=== PATIENT | female | born 1990 | race Caucasian/White ===

== ENCOUNTER 2017-02-17 23:54 | Emergency (ER) | payer BC ==
[~2017-02-17] VITALS: Ht 160 cm; Wt 72.6 kg
[2017-02-18 00:31] VITALS: BP 116/50
[2017-02-18] MEDS ORDERED: 0.9 % SODIUM CHLORIDE 10 ML DISP.SYRIN. IV PRN (00:45)
[2017-02-18] MEDS ORDERED: IV NORMAL SALINE 1,000ML 1,000 ML IV SCH (01:00)
[2017-02-18] MEDS ORDERED: ONDANSETRON PF 4 MG/2 ML VIAL. IV ONE (01:00)
[2017-02-18 01:22] LABS: BASO % 0 % (0-3); EOS % 0 % (0-3); HEMATOCRIT 38.6 % (36.0-47.0); HEMOGLOBIN 12.9 g/dL (12.0-15.5); LYMPH # 1.5 x10^3/uL (1.0-4.8); LYMPH % 17 % (24-48); MEAN CORPUSCULAR HEMOGLOBIN 29 pg (25-35); MEAN CORPUSCULAR HGB CONC 34 g/dL (31-37); MEAN CORPUSCULAR VOLUME 87 fL (79-100); MONO # 0.4 x10^3/uL (0.0-1.1); MONO % 5 % (0-9); NEUT # 7.1 x10^3uL (1.8-7.7); NEUT % 78 % (31-73); PLATELET COUNT 250 x10^3/uL (140-400); RED BLOOD COUNT 4.44 x10^6/uL (3.50-5.40); RED CELL DISTRIBUTION WIDTH 13.5 % (11.5-14.5); WHITE BLOOD COUNT 9.1 x10^3/uL (4.0-11.0)
[2017-02-18] MEDS ORDERED: ONDA8TAB12 PO (01:25)
--- NOTE | 2017-02-18 01:25 | PHYS DOC ---
Past History Past Medical History: No Pertinent History Past Surgical History: No Surgical History Smoking: Non-smoker Alcohol Use: Occasionally Drug Use: None Adult General Chief Complaint Chief Complaint: ALCOHOL INTOXICATION HPI HPI A she is a pleasant 26-year-old female who was celebrating her brother's wedding tonight and she imbibed a little too much alcohol. She began having some nausea and vomiting while on the scene despite having no abdominal pain. She was brought to the emergency department because of intractable nausea and vomiting. She admits that she's been drinking hard alcohol with beer. He does not regularly drink alcohol and only does on special occasions. She denies any abdominal pain, chest pain, shortness of breath, diarrhea, fevers, chills, URI symptoms, trauma, antibiotic use. Patient has never had any delirium tremens or withdrawal symptoms when stopping drinking alcohol. She denies that she can be at this time. Her is at the bedside. She vomited unfortunate she does not know how many times nonbilious nonbloody emesis. Review of Systems Review of Systems Constitutional: Denies fever or chills [] Eyes: Denies change in visual acuity, redness, or eye pain [] HENT: Denies nasal congestion or sore throat [] Respiratory: Denies cough or shortness of breath [] Cardiovascular: No additional information not addressed in HPI [] GI: Denies abdominal pain, only complaint is nausea and vomiting with no bloody or diarrhea stools. : Denies dysuria or hematuria [] Musculoskeletal: Denies back pain or joint pain [] Integument: Denies rash or skin lesions [] Neurologic: Denies headache, focal weakness or sensory changes [] Endocrine: Denies polyuria or polydipsia [] Current Medications Current Medications Current Medications Medications (Trade) Dose Ordered Sig/Tin Start Time Stop Time Status Last Admin Dose Admin Ondansetron HCl (Zofran) 4 mg 1X ONCE 02/18/17 01:00 02/18/17 01:01 DC 02/18/17 01:03 4 MG Sodium Chloride 1,000 ml @ 1,000 mls/hr Q1H 02/18/17 01:00 02/18/17 01:59 02/18/17 01:04 1,000 MLS/HR Sodium Chloride (Normal Saline Flush) 10 ml QSHIFT PRN 02/18/17 00:45 Allergies Allergies Allergies Coded Allergies Type Severity Reaction Last Updated Verified No Known Drug Allergies 02/18/17 No Physical Exam Physical Exam Vital signs stable. Constitutional: Well developed, well nourished, no acute distress, patient is intoxicated but very nontoxic in appearance HENT: Normocephalic, atraumatic, bilateral external ears normal, oropharynx moist, Eyes: PERRLA, EOMI, conjunctiva normal, no discharge. [] Neck: Normal range of motion, no tenderness, supple, no stridor. [] Cardiovascular:Heart rate regular rhythm, no murmur [] Lungs & Thorax: Bilateral breath sounds clear to auscultation [] Abdomen: Bowel sounds normal, soft, no tenderness, no masses, no pulsatile masses. [] Skin: Warm, dry, no erythema, no rash. [] Extremities: No tenderness, no cyanosis, no clubbing, ROM intact, no edema. [] Neurologic: Alert and oriented X 3, normal motor function, normal sensory function, no focal deficits noted. [] Psychologic: Affect normal, judgement normal, mood normal. Patient is intoxicated but has normal interactions normal memory no slurred speech. [] Current Patient Data Vital Signs Vital Signs Date Time Temp Pulse Resp B/P (MAP) Pulse Ox O2 Delivery O2 Flow Rate FiO2 02/18/17 00:22 97.4 88 20 123/73 (90) 98 Room Air Lab Results Laboratory Tests Test 02/18/17 01:03 White Blood Count 9.1 x10^3/uL (4.0-11.0) Red Blood Count 4.44 x10^6/uL (3.50-5.40) Hemoglobin 12.9 g/dL (12.0-15.5) Hematocrit 38.6 % (36.0-47.0) Mean Corpuscular Volume 87 fL (79-100) Mean Corpuscular Hemoglobin 29 pg (25-35) Mean Corpuscular Hemoglobin Concent 34 g/dL (31-37) Red Cell Distribution Width 13.5 % (11.5-14.5) Platelet Count 250 x10^3/uL (140-400) Neutrophils (%) (Auto) 78 % (31-73) H Lymphocytes (%) (Auto) 17 % (24-48) L Monocytes (%) (Auto) 5 % (0-9) Eosinophils (%) (Auto) 0 % (0-3) Basophils (%) (Auto) 0 % (0-3) Neutrophils # (Auto) 7.1 x10^3uL (1.8-7.7) Lymphocytes # (Auto) 1.5 x10^3/uL (1.0-4.8) Monocytes # (Auto) 0.4 x10^3/uL (0.0-1.1) Eosinophils # (Auto) 0.0 x10^3/uL (0.0-0.7) Basophils # (Auto) 0.0 x10^3/uL (0.0-0.2) Sodium Level 141 mmol/L (136-145) Potassium Level 3.9 mmol/L (3.5-5.1) Chloride Level 102 mmol/L (98-107) Carbon Dioxide Level 28 mmol/L (21-32) Anion Gap 11 (6-14) Blood Urea Nitrogen 10 mg/dL (7-20) Creatinine 1.2 mg/dL (0.6-1.0) H Estimated GFR (Cockcroft-Gault) 54.7 Glucose Level 96 mg/dL (70-99) Calcium Level 8.1 mg/dL (8.5-10.1) L Magnesium Level 2.3 mg/dL (1.8-2.4) Total Bilirubin 0.7 mg/dL (0.2-1.0) Direct Bilirubin 0.1 mg/dL (0.0-0.2) Aspartate Amino Transferase (AST) 24 U/L (15-37) Alanine Aminotransferase (ALT) 23 U/L (14-59) Alkaline Phosphatase 55 U/L (46-116) Total Protein 8.0 g/dL (6.4-8.2) Albumin 4.2 g/dL (3.4-5.0) Salicylates Level 0.2 mg/dL (2.8-20.0) L Salicylate Last Dose Date Unknown Salicylate Last Dose Time Unknown Acetaminophen Level < 2.0 mcg/mL (10-30) L Acetaminophen Last Dose Date Unknown Acetaminophen Last Dose Time Unknown Ethyl Alcohol Level 151 mg/dL (0-10) H EKG EKG [] Radiology/Procedures Radiology/Procedures [] Course & Med Decision Making Course & Med Decision Making Pertinent Labs and Imaging studies reviewed. (See chart for details) arrived very intoxicated with nausea and vomiting likely from over indulgence in alcohol. She is nontoxic in appearance and appropriate on exam. When she feels better and clinically sober for discharge she'll be discharged with her . Her abdomen is soft we'll ensure that she is not today. She' ll given some fluids antiemetics and reevaluation to ensure that she is feeling better. Alcohol level 151. Patient's lungs are otherwise normal patient has no other indication to be intoxicated. Patient is hemodynamics stable and resting comfortably with her in the room. I'll provide her supportive medications to go home and PCP follow-up. Impression: Alcohol intoxication, nausea and vomiting Disposition: PCP follow-up for T and care. [] Dragon Disclaimer Dragon Disclaimer This chart was dictated in whole or in part using Voice Recognition software in a busy, high-work load, and often noisy Emergency Department environment. It may contain unintended and wholly unrecognized errors or omissions. Departure Departure: Impression: Primary Impression: Alcohol intoxication Additional Impression: Nausea and vomiting Disposition: 01 HOME, SELF-CARE Condition: IMPROVED Referrals: CHELLY BRAN MD (PCP) Patient Instructions: Alcohol Intoxication, Nausea and Vomiting Additional Instructions: Please maintain your hydration by drinking regular water. Please return for any increasing abdominal pain, vomiting of blood or blood in her stool or if you have any question concerns. Scripts Ondansetron (ZOFRAN ODT) 8 Mg Tab.rapdis 4 MG PO TID for 3 Days Prov: TYRESE SERRATO MD 02/18/17 Problem Qualifiers TYRESE SERRATO MD Feb 18, 2017 01:25
[2017-02-18 01:32] LABS: ETHANOL 151 mg/dL (0-10); SALIC 0.2 mg/dL (2.8-20.0)
[2017-02-18 01:33] LABS: ACETAMIN < 2.0 mcg/mL (10-30); ALBUMIN 4.2 g/dL (3.4-5.0); CALCIUM 8.1 mg/dL (8.5-10.1); CREATININE 1.2 mg/dL (0.6-1.0); DIRECT BILIRUBIN 0.1 mg/dL (0.0-0.2); GFR 54.7; MAGNESIUM 2.3 mg/dL (1.8-2.4); TOTAL BILIRUBIN 0.7 mg/dL (0.2-1.0)
[2017-02-18 01:34] LABS: POTASSIUM 3.9 mmol/L (3.5-5.1)
== END 2017-02-18 02:30 | disposition home or self-care (01) ==
LOC: ER 23:54
DX: F10.129 Alcohol abuse with intoxication, unspecified (principal)
CPT/HCPCS: 36415; 80048; 80076; 83735; 85027; 96361; 96374; 99284; G0480; J2405; J7030